=== PATIENT | female | born 1965 | race Caucasian/White ===

== ENCOUNTER → 2016-10-28 | Outpatient (CLI) | payer MEDICAID ==
[~2016-10-28] MED LIST: ACET-2321 PO; ALBU2.5V2 AEROSOL; ALBU8.5H INH; ASPI81TA2 PO; BENZ-16 PO; CARV3.12 PO; DOXY100T2 PO; LISI2.5T2 PO; NITR0.4T SL; PRED10TA PO
--- NOTE | 2016-10-28 16:24 | DI ---
INDICATION: ITS.REASON: J44.9 CHRONIC OBSTRUCTIVE PULMONARY DISEASE, UNSPECIFIED COPD TYP PROCEDURE: CHEST 2-VIEWS UPRIGHT (PA \T\ LAT) Encounter: Initial COMPARISON: June 09, 2016 FINDINGS: The lungs are mildly hyperinflated but clear without evidence of focal abnormal airspace opacity. There is no pleural effusion or pneumothorax. The heart size, mediastinal contours and pulmonary vascularity are within normal limits. Old rib fractures. IMPRESSION: No acute cardiopulmonary disease. Mild hyperinflation consistent with COPD. .
== END ==
LOC: IMA 15:50
PROVIDERS: ATTEND Nurse Practitioner Family
DX: J44.9 Chronic obstructive pulmonary disease, unspecified (principal)

== ENCOUNTER 2017-08-30 15:11 | Observation (INO) ==
[2017-08-30] MEDS ORDERED: ALBUTEROL/IPRATROPIUM 2.5mg-0.5mg/3ml NEB AEROSOL ONE (15:28)
--- NOTE | 2017-08-30 15:28 | Emergency Department Report ---
Weakness HPI - General Chief complaint: Weakness Stated complaint: trouble hearing, feet swelling Time Seen by Provider: 08/30/17 15:38 Source: patient Mode of arrival: ambulatory Limitations: no limitations - History of Present Illness HPI Narrative: 51-year-old female brought to ER by family with multiple complaints. Patient patient says that she has felt short of air for the last 2 days. Patient is normally on 2 L of oxygen for her COPD and has increased O2 to 4 L due to feeling short of air. [id number] who is patient's site identification specialist states that during the night last night patient was found with low oxygen saturation and heart rate was in the 40s. [id number] states patient does drink alcohol and has a tendency to drink more than she is supposed to. Concerned that low O2 saturation and low heart rate was related to intoxication. Family also states that patient has intermittent plugging of the ears which she has seen an ENT for. Son states that patient was diagnosed with a fungus in her ear canal which she has been treated. Admits chronic SOA and productive cough. Denies fever, chills, rhinorrhea, chest pain, nausea, vomiting. - Related Data Home Medications Medication Instructions Recorded Confirmed Albuterol Sulfate [Proair Hfa] 2 puff INH Q4H PRN 08/30/17 08/30/17 Albuterol/Ipratropium [Duoneb] 1 unit AEROSOL Q4H PRN 08/30/17 08/30/17 Alendronate Sodium [Alendronate 70 mg PO WEEKLY 08/30/17 08/30/17 Sodium] Aspirin [Aspirin EC] 81 mg PO DAILY 08/30/17 08/30/17 Bisacodyl EC TAB [Dulcolax] 5 mg PO HS 08/30/17 08/30/17 Calcium Carbonate/Vitamin D3 1 tab PO DAILY 08/30/17 08/30/17 [Calcium 600 with Vit D Chew Tb] Carvedilol [Carvedilol] 3.125 mg PO BID 08/30/17 08/30/17 Cholecalciferol (Vitamin D3) 1,000 unit PO DAILY 08/30/17 08/30/17 [Vitamin D3] DiphenhydrAMINE [Benadryl] 2 cap PO HS 08/30/17 08/30/17 Docusate Sodium [Colace] 100 mg PO DAILY PRN 08/30/17 08/30/17 Lisinopril [Prinivil] 2.5 mg PO DAILY 08/30/17 08/30/17 Nitroglycerin [Nitrostat] 0.4 mg SL Q5MIN PRN 08/30/17 08/30/17 Ranitidine [Zantac] 150 mg PO HS 08/30/17 08/30/17 Sodium Chloride [Saline Nasal 1 ml EA NOSTRIL DAILY 08/30/17 08/30/17 [place]] Tiotropium Br/Olodaterol HCl 2 puff INH DAILY 08/30/17 08/30/17 [Stiolto Respimat Inhal [place]] Allergies Allergy/AdvReac Type Severity Reaction Status Date / Time morphine Allergy Unknown ITCHING Verified 08/30/17 15:42 Review of Systems ENT: Reports: as per HPI, hearing loss Respiratory: Reports: as per HPI, cough, dyspnea PFSH Patient Stated Medical History Congestive Heart Failure Yes Myocardial Infarction Yes Chronic Obstructive Pulmonary Yes Disease (COPD) Gastroesophageal Reflux Yes Disease Family History: Noncontributory - Social History Household members: family Physical Exam - Limitations Limitations: no limitations - General General appearance: alert, in no apparent distress - Normal Exams: Head:: Normocephalic without trauma Eyes:: No scleral icterus, irritation ENMT:: No facial trauma, nasal exudates, pharyngeal erythema, or exudates are noted Neck:: Full range of motion, without adenopathy Cardiovascular:: Regular rate and rhythm Abdomen:: Bowel sounds positive, soft, non-tender, non-distended Musculoskeletal:: No tenderness, or deformity noted, all extremities Neurological:: Patient is alert, and oriented, cranial nerves, motor/sensory/ cerebellar, exams w/o gross deficits, to observation Psychiatric:: Patient exhibits, appropriate attention, emotion and affect - Eye Eye exam: Present: EOMI - Neck Neck exam: Present: trachea midline - Expanded Respiratory Exam Location: Left: wheezes (i inspiratory and expiratory), decreased breath sounds , Right: wheezes, decreased breath sounds, Upper: wheezes, decreased breath sounds, Lower: wheezes, decreased breath sounds - Skin Skin exam: Present: warm, dry Course - Consultations Consultation #1: I discussed patient's HPI, PMH, labs, CXR, VS, exam findings and treatment in the ED with Dr. Gamble. Dr. Gamble will admit. Vital Signs Temperature 98 F 08/30/17 15:23 Pulse Rate 85 08/30/17 15:23 Respiratory Rate 24 08/30/17 15:23 Blood Pressure 143/77 H 08/30/17 15:23 Pulse Oximetry 100 08/30/17 15:23 Temperature 98.6 F 08/30/17 16:11 Pulse Rate 87 08/30/17 17:45 Respiratory Rate 20 08/30/17 17:45 Blood Pressure 131/74 08/30/17 17:45 Pulse Oximetry 100 08/30/17 17:45 Weakness - Differential Diagnosis Differential diagnosis: Likely: acute myocardial infarction (, CHF, COPD exacerbation, Pneumonia), anemia - Medical Records Attestation: I reviewed the patient's medical records. - Lab Data Attestation: I reviewed the patient's lab results. Result diagrams: 08/30/17 16:02 08/30/17 16:02 Lab Results 08/30/17 08/30/17 08/30/17 Range/Units 15:53 15:57 15:57 WBC (4.5-11.0) T/MM3 RBC (4.00-5.20) M/MM3 Hgb (12-16) GM/DL Hct (36-46) % MCV (80-100) UM3 MCH (26-34) UUG MCHC (31-37) GM/DL RDW Std Deviation (36.9-50.2) FL Plt Count (130-400) T/MM3 MPV (9.4-12.4) UM3 Immature Gran % (Auto) (0.0-0.5) % Neut % (Auto) (33-66) % Lymph % (Auto) (23-45) % Wolfe % (Auto) (0-9.0) % Eos % (Auto) (0-4) % Baso % (Auto) (0-2) % Neut # (Auto) (1.8-7.7) T/MM3 Lymph # (Auto) (1-4.8) T/MM3 Wolfe # (Auto) (0-0.8) T/MM3 Eos # (Auto) (0-0.5) T/MM3 Baso # (Auto) (0-0.2) T/MM3 Abs Immat Gran (auto) (0.00-0.03) T/MM3 ABG pH (7.350-7.450) ABG pCO2 (34.0-45.0) MMHG ABG pO2 (80.0-100.0) MMHG ABG HCO3 (22.0-26.0) MEQ/L ABG Total CO2 (23.0-27.0) MEQ/L ABG O2 Saturation (95.0-98.0) % ABG Base Excess (-2.0-2.0) MMOL/L Liter Flow LPM Turbidity (0-20) Sodium (134-144) MEQ/L Potassium (3.6-5) MEQ/L Chloride (98-107) MEQ/L Carbon Dioxide (22-30) MEQ/L Anion Gap (5-15) MEQ/L BUN (7-17) MG/DL Creatinine (0.7-1.2) mg/dL GFR Calculation BUN/Creatinine Ratio (6-26) RATIO Glucose (65-110) MG/DL Calculated Osmolality (261-280) MOSM/KG Calcium (8.4-10.2) MG/DL Total Bilirubin (0.20-1.30) MG/DL Icterus Index (0-7) AST (14-36) U/L ALT (9-52) U/L Alkaline Phosphatase (38-126) U/L Troponin I < 0.012 (0-0.12) ng/ml NT-Pro-B Natriuret Pep 384 H (0-175) pg/mL Total Protein (6.3-8.2) G/DL Albumin (3.5-5.0) g/dL Globulin (2.4-3.6) G/DL Albumin/Globulin Ratio (1.1-2.2) RATIO Lipase (23-300) U/L Specimen Hemolysis 22 (0-25) Ur Collection Type Urine, void-cc/notcc Urine Color Yellow (YELLOW) Urine Clarity Cloudy Urine pH 8.5 A (5.0-8.0) Ur Specific [place] 1.010 L (1.015-1.025) Urine Protein Negative (NEGATIVE) Urine Glucose (UA) 3+ A (NEGATIVE) Urine Ketones Negative (NEGATIVE) Urine Occult Blood Negative (NEGATIVE) Urine Nitrate Negative (NEGATIVE) Urine Bilirubin Negative (NEGATIVE) Urine Urobilinogen 1.0 (NORMAL) EU/DL Ur Leukocyte Esterase Negative (NEGATIVE) Urinalysis Comment Microscopic not ind. Alcohol, Quantitative (<10) mg/dL 08/30/17 08/30/17 08/30/17 Range/Units 16:02 16:02 16:32 WBC 7.2 (4.5-11.0) T/MM3 RBC 3.53 L (4.00-5.20) M/MM3 Hgb 11.2 L (12-16) GM/DL Hct 35.2 L (36-46) % MCV 99.7 (80-100) UM3 MCH 31.7 (26-34) UUG MCHC 31.8 (31-37) GM/DL RDW Std Deviation 39.4 (36.9-50.2) FL Plt Count 174 (130-400) T/MM3 MPV 10.0 (9.4-12.4) UM3 Immature Gran % (Auto) 0.1 (0.0-0.5) % Neut % (Auto) 63.2 (33-66) % Lymph % (Auto) 26.1 (23-45) % Wolfe % (Auto) 8.9 (0-9.0) % Eos % (Auto) 1.3 (0-4) % Baso % (Auto) 0.4 (0-2) % Neut # (Auto) 4.5 (1.8-7.7) T/MM3 Lymph # (Auto) 1.9 (1-4.8) T/MM3 Wolfe # (Auto) 0.6 (0-0.8) T/MM3 Eos # (Auto) 0.1 (0-0.5) T/MM3 Baso # (Auto) 0.0 (0-0.2) T/MM3 Abs Immat Gran (auto) 0.01 (0.00-0.03) T/MM3 ABG pH (7.350-7.450) ABG pCO2 (34.0-45.0) MMHG ABG pO2 (80.0-100.0) MMHG ABG HCO3 (22.0-26.0) MEQ/L ABG Total CO2 (23.0-27.0) MEQ/L ABG O2 Saturation (95.0-98.0) % ABG Base Excess (-2.0-2.0) MMOL/L Liter Flow LPM Turbidity < 20 Cancelled (0-20) Sodium 128 L Cancelled (134-144) MEQ/L Potassium 4.2 Cancelled (3.6-5) MEQ/L Chloride 72 L Cancelled (98-107) MEQ/L Carbon Dioxide 50 H* Cancelled (22-30) MEQ/L Anion Gap 6 Cancelled (5-15) MEQ/L BUN 4.0 L Cancelled (7-17) MG/DL Creatinine 0.3 L Cancelled (0.7-1.2) mg/dL GFR Calculation 234 Cancelled BUN/Creatinine Ratio 13 Cancelled (6-26) RATIO Glucose 118 H Cancelled (65-110) MG/DL Calculated Osmolality 245 L Cancelled (261-280) MOSM/KG Calcium 9.0 Cancelled (8.4-10.2) MG/DL Total Bilirubin 0.20 Cancelled (0.20-1.30) MG/DL Icterus Index < 2 Cancelled (0-7) AST 22 Cancelled (14-36) U/L ALT 17 Cancelled (9-52) U/L Alkaline Phosphatase 64 Cancelled (38-126) U/L Troponin I (0-0.12) ng/ml NT-Pro-B Natriuret Pep (0-175) pg/mL Total Protein 7.7 Cancelled (6.3-8.2) G/DL Albumin 4.0 Cancelled (3.5-5.0) g/dL Globulin 3.7 H Cancelled (2.4-3.6) G/DL Albumin/Globulin Ratio 1.1 Cancelled (1.1-2.2) RATIO Lipase 80 (23-300) U/L Specimen Hemolysis < 15 Cancelled (0-25) Ur Collection Type Urine Color (YELLOW) Urine Clarity Urine pH (5.0-8.0) Ur Specific [place] (1.015-1.025) Urine Protein (NEGATIVE) Urine Glucose (UA) (NEGATIVE) Urine Ketones (NEGATIVE) Urine Occult Blood (NEGATIVE) Urine Nitrate (NEGATIVE) Urine Bilirubin (NEGATIVE) Urine Urobilinogen (NORMAL) EU/DL Ur Leukocyte Esterase (NEGATIVE) Urinalysis Comment Alcohol, Quantitative <10 (<10) mg/dL 08/30/17 Range/Units 17:33 WBC (4.5-11.0) T/MM3 RBC (4.00-5.20) M/MM3 Hgb (12-16) GM/DL Hct (36-46) % MCV (80-100) UM3 MCH (26-34) UUG MCHC (31-37) GM/DL RDW Std Deviation (36.9-50.2) FL Plt Count (130-400) T/MM3 MPV (9.4-12.4) UM3 Immature Gran % (Auto) (0.0-0.5) % Neut % (Auto) (33-66) % Lymph % (Auto) (23-45) % Wolfe % (Auto) (0-9.0) % Eos % (Auto) (0-4) % Baso % (Auto) (0-2) % Neut # (Auto) (1.8-7.7) T/MM3 Lymph # (Auto) (1-4.8) T/MM3 Wolfe # (Auto) (0-0.8) T/MM3 Eos # (Auto) (0-0.5) T/MM3 Baso # (Auto) (0-0.2) T/MM3 Abs Immat Gran (auto) (0.00-0.03) T/MM3 ABG pH 7.277 L (7.350-7.450) ABG pCO2 99 H* (34.0-45.0) MMHG ABG pO2 73.0 L (80.0-100.0) MMHG ABG HCO3 46.1 H (22.0-26.0) MEQ/L ABG Total CO2 49.1 H (23.0-27.0) MEQ/L ABG O2 Saturation 90.5 L (95.0-98.0) % ABG Base Excess 15.0 H (-2.0-2.0) MMOL/L Liter Flow 2 LPM Turbidity (0-20) Sodium (134-144) MEQ/L Potassium (3.6-5) MEQ/L Chloride (98-107) MEQ/L Carbon Dioxide (22-30) MEQ/L Anion Gap (5-15) MEQ/L BUN (7-17) MG/DL Creatinine (0.7-1.2) mg/dL GFR Calculation BUN/Creatinine Ratio (6-26) RATIO Glucose (65-110) MG/DL Calculated Osmolality (261-280) MOSM/KG Calcium (8.4-10.2) MG/DL Total Bilirubin (0.20-1.30) MG/DL Icterus Index (0-7) AST (14-36) U/L ALT (9-52) U/L Alkaline Phosphatase (38-126) U/L Troponin I (0-0.12) ng/ml NT-Pro-B Natriuret Pep (0-175) pg/mL Total Protein (6.3-8.2) G/DL Albumin (3.5-5.0) g/dL Globulin (2.4-3.6) G/DL Albumin/Globulin Ratio (1.1-2.2) RATIO Lipase (23-300) U/L Specimen Hemolysis (0-25) Ur Collection Type Urine Color (YELLOW) Urine Clarity Urine pH (5.0-8.0) Ur Specific [place] (1.015-1.025) Urine Protein (NEGATIVE) Urine Glucose (UA) (NEGATIVE) Urine Ketones (NEGATIVE) Urine Occult Blood (NEGATIVE) Urine Nitrate (NEGATIVE) Urine Bilirubin (NEGATIVE) Urine Urobilinogen (NORMAL) EU/DL Ur Leukocyte Esterase (NEGATIVE) Urinalysis Comment Alcohol, Quantitative (<10) mg/dL - Radiology Data Attestation: I reviewed the patient's radiology results. Disposition Prescriptions: No Action Calcium Carbonate/Vitamin D3 [Calcium 600 with Vit D Chew Tb] 1 tab PO DAILY Sodium Chloride [Saline Nasal [place]] 1 ml EA NOSTRIL DAILY Docusate Sodium [Colace] 100 mg PO DAILY PRN PRN Reason: Constipation Cholecalciferol (Vitamin D3) [Vitamin D3] 1,000 unit PO DAILY Aspirin [Aspirin EC] 81 mg PO DAILY Albuterol/Ipratropium [Duoneb] 1 unit AEROSOL Q4H PRN PRN Reason: Shortness Of Air/Wheezing Alendronate Sodium [Alendronate Sodium] 70 mg PO WEEKLY Ranitidine [Zantac] 150 mg PO HS Carvedilol [Carvedilol] 3.125 mg PO BID Nitroglycerin [Nitrostat] 0.4 mg SL Q5MIN PRN PRN Reason: Chest Pain Lisinopril [Prinivil] 2.5 mg PO DAILY Tiotropium Br/Olodaterol HCl [Stiolto Respimat Inhal [place]] 2 puff INH DAILY Bisacodyl EC TAB [Dulcolax] 5 mg PO HS DiphenhydrAMINE [Benadryl] 2 cap PO HS Albuterol Sulfate [Proair Hfa] 2 puff INH Q4H PRN PRN Reason: COUGH/CONGESTION Referrals: Qi Mahajan APRN [Family Provider] - - Seen By: midlevel
[2017-08-30] MEDS ORDERED: SALINE FLUSH 10ml SYRINGE IVF PRN ×2 (15:52→17:07)
[2017-08-30] MEDS ORDERED: NS 1,000 ML IV ONE (17:05)
[2017-08-30] MEDS ORDERED: ONDANSETRON 4 MG/2 ML INJECTION IVP ONE (17:05)
[2017-08-30] MEDS ORDERED: METHYLPREDNISOLONE SOD SUCC 125mg/2ml INJECTION IVP ONE (17:52)
[2017-08-30] MEDS ORDERED: ALBUTEROL/IPRATROPIUM 2.5mg-0.5mg/3ml NEB AEROSOL PRN (18:35)
[2017-08-30 19:44] VITALS: BMI 15.4
[2017-08-30] MEDS: AZITHROMYCIN 500 MG TABLET PO SCH (20:08)
[2017-08-30] MEDS: METHYLPREDNISOLONE SOD SUCC 125mg/2ml INJECTION IVP SCH (20:09)
--- NOTE | 2017-08-30 21:16 | History & Physical Report ---
History of Present Illness Date: 08/30/17 Chief complaint: shortness of breath HPI: 51-year-old patient with severe's COPD arrived in emergency room with multiple complaints but respiratory distress and dyspnea requiring supplemental oxygen. Her O2 saturation improved to hold at 90% on a baseline however she is weakened confused and family notes that she is significantly below her functional level. She's been placed on BiPAP and so all history comes to her [id number]. Patient is very deaf and does not have her hearing aids Review of Systems ROS unobtainable: due to mental status - Constitutional Constitutional: Present: as per HPI - EENMT Eyes: Present: requires corrective lenses Ears: Present: as per HPI Mouth/Throat: Present: dry mouth - Cardiovascular Cardiovascular: Present: dyspnea on exertion. Absent: chest pain, palpitations , syncope - Respiratory Respiratory: Present: cough, dyspnea, dyspnea on exertion, wheezing, pain on inspiration. Absent: hemoptysis - Gastrointestinal Gastrointestinal: Absent: abdominal pain, change in bowel habits - Genitourinary Genitourinary: Absent: dysuria - Musculoskeletal Musculoskeletal: Present: arthralgias - Neurological Neurological: Present: confusion, headache(s). Absent: abnormal gait, convulsions, focal weakness - Psychiatric Psychiatric: Present: anxiety Past Medical History Patient Stated Medical History Hearing Loss Yes: Bilateral. No hearing aids. Congestive Heart Failure Yes Myocardial Infarction Yes Other Cardiology Yes Chronic Obstructive Pulmonary Yes Disease (COPD) Gastroesophageal Reflux Yes Disease Other Musculoskeletal Yes: Osteoporosis Family History Updates: [id number] notes ill health within the family but no particular diagnosis of the patient's parents - Social History Smoking status: Current every day smoker Substance use type: does not use Alcohol intake frequency: 3 or more drinks per day Current occupational status: unemployed Current residence: Apartment/Private Home Social history: Daughter notes that there is a wood-burning stove as heating in the house Medications Home Medications Medication Instructions Recorded Confirmed Type Albuterol Sulfate [Proair Hfa] 2 puff INH Q4H PRN 08/30/17 08/30/17 History Albuterol/Ipratropium [Duoneb] 1 unit AEROSOL Q4H PRN 08/30/17 08/30/17 History Alendronate Sodium [Alendronate 70 mg PO WEEKLY 08/30/17 08/30/17 History Sodium] Aspirin [Aspirin EC] 81 mg PO DAILY 08/30/17 08/30/17 History Bisacodyl EC TAB [Dulcolax] 5 mg PO HS 08/30/17 08/30/17 History Calcium Carbonate/Vitamin D3 1 tab PO DAILY 08/30/17 08/30/17 History [Calcium 600 with Vit D Chew Tb] Carvedilol [Carvedilol] 3.125 mg PO BID 08/30/17 08/30/17 History Cholecalciferol (Vitamin D3) 1,000 unit PO DAILY 08/30/17 08/30/17 History [Vitamin D3] DiphenhydrAMINE [Benadryl] 2 cap PO HS 08/30/17 08/30/17 History Docusate Sodium [Colace] 100 mg PO DAILY PRN 08/30/17 08/30/17 History Lisinopril [Prinivil] 2.5 mg PO DAILY 08/30/17 08/30/17 History Nitroglycerin [Nitrostat] 0.4 mg SL Q5MIN PRN 08/30/17 08/30/17 History Ranitidine [Zantac] 150 mg PO HS 08/30/17 08/30/17 History Sodium Chloride [Saline Nasal 1 ml EA NOSTRIL DAILY 08/30/17 08/30/17 History [place]] Tiotropium Br/Olodaterol HCl 2 puff INH DAILY 08/30/17 08/30/17 History [Stiolto Respimat Inhal [place]] Allergies Allergy/AdvReac Type Severity Reaction Status Date / Time morphine Allergy Unknown ITCHING Verified 08/30/17 15:42 Exam Vital Signs: Temperature 98.6 F 08/30/17 16:11 Pulse Rate 91 08/30/17 19:00 Respiratory Rate 30 H 08/30/17 19:00 Blood Pressure 126/77 08/30/17 19:00 Pulse Oximetry 91 08/30/17 19:00 Telemetry Rhythm: Sinus Tachycardia Height/Weight/BMI: Height 4 ft 10 in Weight 33.5 kg Body Mass Index 15.4 - Constitutional Present: moderate distress, well nourished, well developed, cachectic, somnolent - Routine HEENT Exam Head: Present: normocephalic, atraumatic Eye: Present: EOMI, PERRL ENT: Present: mucous membranes dry, dentition normal - Routine Neck Exam Present: full ROM. Absent: lymphadenopathy, tracheal deviation - Routine Respiratory Exam Present: accessory muscle use, patient mechanically ventilated, wheezes, diminished air movement. Absent: crackles - Routine Cardiovascular Exam Present: RRR, S1, S2, tachycardia. Absent: murmur - Routine Abdominal Exam Present: soft, normoactive bowel sounds, non distended. Absent: tenderness - Routine Extremities Exam Present: normal capillary refill - Routine Skin Exam Present: dry, warm - Routine Neurological Exam Present: alert, oriented X3, CN II-XII intact - Routine Psychiatric Exam Present: normal affect, anxious Results - Labs CBC & Chem 7: 08/30/17 16:02 08/30/17 16:02 - ABG Interpretation Attestation: I reviewed and interpreted this ABG. Interpretation: respiratory acidosis Assessment and Plan (1) Acute exacerbation of chronic obstructive pulmonary disease (COPD) Current visit: Yes Status: Acute (2) Hypercapnia with mixed acid-base disorder Current visit: Yes Status: Acute (3) Smoker unmotivated to quit Current visit: Yes Status: Acute (4) Alcohol abuse, continuous drinking behavior Current visit: Yes Status: Acute (5) Coronary artery disease Current visit: Yes Status: Acute Assessment and Plan: Patient is an end-stage COPD case in exacerbation with a fairly profound hyper- carbic condition. She has been using her nasal cannula oxygen home but continues to smoke although about 45 cigarettes a day. She had been trying to quit but really cannot get below this level. She is quite anxious on BiPAP and this may be due to her not drinking while in extremis. For this reason I am putting her on Librium tonight hopefully she will be able to rest on the BiPAP and blow off some of her carbon dioxide. This will hopefully improve her mental faculty. Patient will need a CIWA score periodically. Disposition: observation status for 24 hours. Intend to rest patient on BiPAP overnight and discharge tomorrow hopefully - Time spent with patient Time with patient PN: 35 minutes - Physician Narrative Narrative: Date: 08/30/17 Time: 2112 Hospital Course Summary Disclaimer: The visit summary below is not to be considered part of the above Progress Note.
[2017-08-31] MEDS: ACETAMINOPHEN 325 MG TABLET PO PRN ×2 (06:11→15:06)
[2017-08-31 07:49] VITALS: BP 107/67; RESP 14; TEMP 97.7; O2SAT 98
--- NOTE | 2017-08-31 08:42 | XRay Report ---
EXAM: XR abdomen 2V DATE: 08/30/2017 12:00 AM Encounter: Initial INDICATION: n/v COMPARISON: Concurrent chest radiographs Technique: Upright and supine AP abdominal radiographs were obtained. Findings: Non-obstructive bowel gas pattern. Moderate colonic gas and stool. No intraperitoneal free air. No acute osseous abnormality identified. The visualized lung bases appear clear. Impression: Moderate colonic gas and stool with a nonobstructive bowel gas pattern. .
--- NOTE | 2017-08-31 08:44 | XRay Report ---
Indication: SOA, weakness Procedure: XR chest 2V: Encounter: Initial Comparison: 03/12/2017 Technique: PA and lateral radiographs of the chest were obtained. Findings: Lungs and airways: Increased lung volumes raising consideration for COPD. No focal airspace consolidation. Normal pulmonary vasculature. Pleura: No pleural effusion or pneumothorax. Heart and mediastinum: The cardiomediastinal silhouette and great vessels are within normal limits. Osseous structures and soft tissues: No acute osseous abnormality is seen. Old right rib fractures. Impression: No acute cardiopulmonary process. .
[2017-08-31] MEDS ORDERED: ENOXAPARIN 40 MG/0.4 ML INJECTION SQ SCH (09:00)
[2017-08-31] MEDS: AZITHROMYCIN 500 MG TABLET PO SCH (09:45)
[2017-08-31] MEDS: METHYLPREDNISOLONE SOD SUCC 125mg/2ml INJECTION IVP SCH (09:46)
[2017-08-31 11:40] VITALS: PULSE 109
--- NOTE | 2017-08-31 13:10 | Discharge Summary ---
Discharge Information Date of admission: 08/30/17 18:49 Anticipated date of discharge: 08/31/17 Attending Physician: Franklin Gamble MD Primary care physician: Qi Mahajan APRN - Discharge Diagnosis (1) Acute exacerbation of chronic obstructive pulmonary disease (COPD) Status: Acute (2) Hypercapnia with mixed acid-base disorder Status: Acute (3) Smoker unmotivated to quit Status: Acute (4) Alcohol abuse, continuous drinking behavior Status: Acute (5) Coronary artery disease Status: Acute - Laboratory Labs: 08/31/17 09:01 08/31/17 09:01 History of Present Illness HPI: 51-year-old patient with severe's COPD arrived in emergency room with multiple complaints but respiratory distress and dyspnea requiring supplemental oxygen. Her O2 saturation improved to hold at 90% on a baseline however she is weakened confused and family notes that she is significantly below her functional level. She's been placed on BiPAP and so all history comes to her [id number]. 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 Absent: murmur - Routine Abdominal Exam Present: soft, normoactive bowel sounds, non distended. Absent: tenderness - Routine Extremities Exam Present: normal capillary refill - Routine Skin Exam Present: dry, warm - Routine Neurological Exam Present: alert, oriented X3, CN II-XII intact - Routine Lymphatic Exam Lymphatic: Absent: adenopathy - Routine Psychiatric Exam Present: normal affect Hospital Course This is a general summary of the patient's hospital course. For more details refer to the complete medical record. Hospital course: This is a 51-year-old woman who came into the emergency room with worsening cough dyspnea in fatigue. She was having acute exacerbation of her COPD and while her oxygen saturation was not miserable she was dyspneic and tachypnic. She's placed on observation with steroids and PRN and then turned to scheduled breathing treatments as she was not using quite frequently enough to break exacerbation. She remain on supplemental oxygen overnight and weaned off in the morning. She does desaturate on ambulation but desires no further intervention and as this is likely still secondary to a bit of the ongoing exacerbation, I cannot deter her as she is eager to go home. She is following up with Dr. Portillo on an outpatient basis. Discharge with a steroid taper and continued nebulizers. Time spent with patient: 25 - 35 minutes Discharge Plan - Discharge Disposition Discharge Date: 08/31/17 Disposition: 01 Discharged Home, Self-Care *Condition: Stable Reason For Visit (Visit label in EMR): COPD exacerbation - Discharge Medications *Discharge Medications: New methylPREDNISolone [Methylprednisolone] 4 mg PO DAILY 6 Days #1 tab.[id number] Continue Calcium Carbonate/Vitamin D3 [Calcium 600 with Vit D Chew Tb] 1 tab PO DAILY Sodium Chloride [Saline Nasal [place]] 1 ml EA NOSTRIL DAILY Docusate Sodium [Colace] 100 mg PO DAILY PRN PRN Reason: Constipation Cholecalciferol (Vitamin D3) [Vitamin D3] 1,000 unit PO DAILY Aspirin [Aspirin EC] 81 mg PO DAILY Albuterol/Ipratropium [Duoneb] 1 unit AEROSOL Q4H PRN PRN Reason: Shortness Of Air/Wheezing Alendronate Sodium 70 mg PO WEEKLY Ranitidine [Zantac] 150 mg PO HS Carvedilol 3.125 mg PO BID Nitroglycerin [Nitrostat] 0.4 mg SL Q5MIN PRN PRN Reason: Chest Pain Lisinopril [Prinivil] 2.5 mg PO DAILY Tiotropium Br/Olodaterol HCl [Stiolto Respimat Inhal [place]] 2 puff INH DAILY Bisacodyl EC TAB [Dulcolax] 5 mg PO HS DiphenhydrAMINE [Benadryl] 2 cap PO HS Albuterol Sulfate [Proair Hfa] 2 puff INH Q4H PRN PRN Reason: COUGH/CONGESTION - Discharge Packet/Instructions *Diet: Cardiac diet *Activity: As tolerated. Stop smoking as soon as possible *Wound Care: None *Expected Signs/Symptoms: Improving respirations with discontinuance of smoking *Notify Physician if: Worsening shortness of breath *During Business Hours Contact: Your primary care *After Business Hours Contact: Emergency room *Pending Lab/Results: No Pending Lab - Referrals/Follow Up - Patient Handouts Patient Handouts: COPD (Chronic Obstructive Pulmonary Disease) (GEN) - Dismissal Complete Discharge Instructions are:: Complete Physician Narrative - Narrative Attestation Narrative: Date: 08/31/17 Time: [id number]
== END 2017-08-31 15:20 | disposition home or self-care (01) ==
LOC: ED 15:11 → MED 15:11
PROVIDERS: ADMIT Family Medicine; ATTEND Family Medicine